=== PATIENT | female | born 1990 | race Caucasian/White ===

== ENCOUNTER 2019-12-25 17:17 | Emergency (ER) | payer BC, OTHER ==
[2019-12-25 17:23] VITALS: RESP 18
[2019-12-25 18:02] LABS: Appearance,Urine Clear (Clear); Basophils % (A) 1 %; Bilirubin,Urine Negative (Negative); Blood,Urine Negative (Negative); Color,Urine Colorless; Eosinophils # (A) 0.2 k/uL (0-0.7); Eosinophils % (A) 3 %; Glucose,Urine (UA) Negative (Negative); HCT 42.9 % (34.0-46.0); HGB 14.9 gm/dL (11.4-16.0); Ketones,Urine Negative (Negative); Leukocyte Esterase,Urine Negative (Negative); Lymphocytes % (A) 24 %; MCH 31.8 pg (25.0-35.0); MCHC 34.7 g/dL (31.0-37.0); MCV 91.5 fL (80.0-100.0); Mean Platelet Volume 8.1; Monocytes # (A) 0.5 k/uL (0-1.0); Monocytes % (A) 6 %; Neutrophils # (A) 5.4 k/uL (1.3-7.7); Neutrophils % (A) 66 %; Nitrite,Urine Negative (Negative); Platelet Count 205 k/uL (150-450); Protein,Urine Negative (Negative); RBC 4.69 m/uL (3.80-5.40); RDW 11.6 % (11.5-15.5); Specific Gravity,Urine 1.003 (1.001-1.035); Urobilinogen,Urine <2.0 mg/dL (<2.0); WBC 8.2 k/uL (3.8-10.6)
[2019-12-25 18:10] LABS: ALT 79 U/L (4-34); AST 36 U/L (14-36); African American GFR (CKD) >90 (>60 ml/min/1.73 sqM); Albumin 4.6 g/dL (3.5-5.0); Alkaline Phosphatase 56 U/L (38-126); Anion Gap 8 mmol/L; Blood Urea Nitrogen 6 mg/dL (7-17); Calcium 9.8 mg/dL (8.4-10.2); Carbon Dioxide 26 mmol/L (22-30); Chloride 103 mmol/L (98-107); Glucose 92 mg/dL (74-99); Non-African American GFR(CKD) >90 (>60 ml/min/1.73 sqM); Sodium 137 mmol/L (137-145); Total Bilirubin 0.2 mg/dL (0.2-1.3); Total Protein 7.3 g/dL (6.3-8.2)
--- NOTE | 2019-12-25 18:37 | ED ---
Female Urogenital HPI - General Chief complaint: Urogenital Stated complaint: 10.5 wks preg/back pain Time Seen by Provider: 12/25/19 17:25 Source: patient Mode of arrival: ambulatory Limitations: no limitations - History of Present Illness Initial comments: 21-year-old female presenting today for chief complaint of left lower back and pelvic pain. Patient states that she has had left lower back and pelvic pain for the past 5 days. Patient states she is concerned as she believes she is approximately 10 weeks last menstrual period 10/13/19992019. Patient states she called her [employer] Dr. Hernandez who is familiar with her as a patient who recommended her come to the emergency department. Patient denies a vaginal discharge consistent for a sexual transmitted diseases fevers or vaginal bleeding. Patient has no additional complaints. - Related Data Home Medications Medication Instructions Recorded Confirmed Acetaminophen Tab [Tylenol Tab] 500 mg PO ONCE PRN 12/25/19 12/25/19 Allergies Allergy/AdvReac Type Severity Reaction Status Date / Time adhesive Allergy Unknown Rash/Hives Verified 12/25/19 19:00 latex Allergy Unknown Rash/Hives Verified 12/25/19 19:00 prednisone Allergy Unknown Hives Verified 12/25/19 19:00 Review of Systems ROS Statement: Those systems with pertinent positive or pertinent negative responses have been documented in the HPI. ROS Other: All systems not noted in ROS Statement are negative. Past Medical History Past Medical History: No Reported History History of Any Multi-Drug Resistant Organisms: None Reported Past Surgical History: Section Additional Past Surgical History / Comment(s): left ovary removed - r/t torsion Past Psychological History: Depression Smoking Status: Current every day smoker Past Alcohol Use History: None Reported Past Drug Use History: None Reported General Exam - General Exam Comments Initial Comments: General: The patient is awake and alert, in no distress, and does not appear acutely ill. Eye: Pupils are equal, round and reactive to light, extra-ocular movements are intact. No nystagmus. There is normal conjunctiva bilaterally. No signs of icterus. Ears, nose, mouth and throat: There are moist mucous membranes and no oral lesions. Gastrointestinal: Soft, non-distended, tender left lower aspect of the abdomen without masses or organomegaly noted. There is no rebound or guarding present. Musculoskeletal: Normal ROM, no tenderness. Strength 5/5. Sensation intact. Radial pulses equal bilaterally 2+. Neurological: A&O x 3. CN II-XII intact grossly, There are no obvious motor or sensory deficits. Coordination appears grossly intact. Speech is normal. Skin: Skin is warm and dry and no rashes or lesions are noted. Psychiatric: Cooperative, appropriate mood & affect, normal judgment. Patient refused pelvic examination--denies discharge/bleeding Limitations: no limitations Course Vital Signs 12/25/19 17:20 Temperature 98.6 F Pulse Rate 90 Respiratory 18 Rate Blood Pressure 125/80 O2 Sat by Pulse 94 L Oximetry Medical Decision Making - Medical Decision Making 29yo presenting for left lower pelvic pain. US IUP with surgically absent left ovary. Some mild free fluid. Patient US shows no HR, ddx included demise vs early . HCG levels elevated, consistent with 6 weeks gestatation. Will trend. Patient has established OBGYN care who were aware of her visit today (per patient). She has f/u scheduled next week. Recommended immediate return for increasing pain/fevers/discharge. Patient has no RLQ pain. Patient will be discharged with OBGYN f/u. Patient agreeable as is Dr. Vu with care plan and admission. - Lab Data Result diagrams: 12/25/19 17:54 12/25/19 17:54 Lab Results 12/25/19 12/25/19 12/25/19 Range/Units 17:54 17:54 17:54 WBC 8.2 (3.8-10.6) k/uL RBC 4.69 (3.80-5.40) m/uL Hgb 14.9 (11.4-16.0) gm/dL Hct 42.9 (34.0-46.0) % MCV 91.5 (80.0-100.0) fL MCH 31.8 (25.0-35.0) pg MCHC 34.7 (31.0-37.0) g/dL RDW 11.6 (11.5-15.5) % Plt Count 205 (150-450) k/uL Neutrophils % 66 % Lymphocytes % 24 % Monocytes % 6 % Eosinophils % 3 % Basophils % 1 % Neutrophils # 5.4 (1.3-7.7) k/uL Lymphocytes # 2.0 (1.0-4.8) k/uL Monocytes # 0.5 (0-1.0) k/uL Eosinophils # 0.2 (0-0.7) k/uL Basophils # 0.0 (0-0.2) k/uL Sodium 137 (137-145) mmol/L Potassium 4.0 (3.5-5.1) mmol/L Chloride 103 (98-107) mmol/L Carbon Dioxide 26 (22-30) mmol/L Anion Gap 8 mmol/L BUN 6 L (7-17) mg/dL Creatinine 0.59 (0.52-1.04) mg/dL Est GFR (CKD-EPI)AfAm >90 (>60 ml/min/1.73 sqM) Est GFR (CKD-EPI)NonAf >90 (>60 ml/min/1.73 sqM) Glucose 92 (74-99) mg/dL Calcium 9.8 (8.4-10.2) mg/dL Total Bilirubin 0.2 (0.2-1.3) mg/dL AST 36 (14-36) U/L ALT 79 H (4-34) U/L Alkaline Phosphatase 56 (38-126) U/L Total Protein 7.3 (6.3-8.2) g/dL Albumin 4.6 (3.5-5.0) g/dL HCG, Quant mIU/mL Urine Color Urine Appearance (Clear) Urine pH (5.0-8.0) Ur Specific [place] (1.001-1.035) Urine Protein (Negative) Urine Glucose (UA) (Negative) Urine Ketones (Negative) Urine Blood (Negative) Urine Nitrite (Negative) Urine Bilirubin (Negative) Urine Urobilinogen (<2.0) mg/dL Ur Leukocyte Esterase (Negative) Blood Type O Positive Blood Type Recheck O Pos Bld Type Recheck Status No 12/25/19 12/25/19 Range/Units 17:54 17:54 WBC (3.8-10.6) k/uL RBC (3.80-5.40) m/uL Hgb (11.4-16.0) gm/dL Hct (34.0-46.0) % MCV (80.0-100.0) fL MCH (25.0-35.0) pg MCHC (31.0-37.0) g/dL RDW (11.5-15.5) % Plt Count (150-450) k/uL Neutrophils % % Lymphocytes % % Monocytes % % Eosinophils % % Basophils % % Neutrophils # (1.3-7.7) k/uL Lymphocytes # (1.0-4.8) k/uL Monocytes # (0-1.0) k/uL Eosinophils # (0-0.7) k/uL Basophils # (0-0.2) k/uL Sodium (137-145) mmol/L Potassium (3.5-5.1) mmol/L Chloride (98-107) mmol/L Carbon Dioxide (22-30) mmol/L Anion Gap mmol/L BUN (7-17) mg/dL Creatinine (0.52-1.04) mg/dL Est GFR (CKD-EPI)AfAm (>60 ml/min/1.73 sqM) Est GFR (CKD-EPI)NonAf (>60 ml/min/1.73 sqM) Glucose (74-99) mg/dL Calcium (8.4-10.2) mg/dL Total Bilirubin (0.2-1.3) mg/dL AST (14-36) U/L ALT (4-34) U/L Alkaline Phosphatase (38-126) U/L Total Protein (6.3-8.2) g/dL Albumin (3.5-5.0) g/dL HCG, Quant 03496.6 mIU/mL Urine Color Colorless Urine Appearance Clear (Clear) Urine pH 7.0 (5.0-8.0) Ur Specific [place] 1.003 (1.001-1.035) Urine Protein Negative (Negative) Urine Glucose (UA) Negative (Negative) Urine Ketones Negative (Negative) Urine Blood Negative (Negative) Urine Nitrite Negative (Negative) Urine Bilirubin Negative (Negative) Urine Urobilinogen <2.0 (<2.0) mg/dL Ur Leukocyte Esterase Negative (Negative) Blood Type Blood Type Recheck Bld Type Recheck Status Disposition Clinical Impression: , Pelvic pain, Low back pain Disposition: HOME SELF-CARE Condition: Good Instructions (If sedation given, give patient instructions): Threatened Miscarriage (ED), Pelvic Pain in Women (ED) Additional Instructions: Please use medication as discussed. Please follow-up with OBGYN next week as scheduled, return for worsening pain, fevers, vaginal bleeding. REPEAT HCG in 48 hours. Please return to emergency room if the symptoms increase or worsen or for any other concerns. Is patient prescribed a controlled substance at d/c from ED?: No Referrals: None,Stated [Primary Care Provider] - 1-2 days Yudelka Hernandze DO [Doctor of Osteopathic Medicine] - 1-2 days Time of Disposition: 19:30
--- NOTE | 2019-12-25 19:23 | US ---
EXAMINATION TYPE: Transabdominal DATE OF EXAM: 12/25/2019 6:30 PM COMPARISON: NONE CLINICAL HISTORY: pain. lower back pain, left pelvic pain, left oopherectomy EXAM PERFORMED: Transvaginal (TV) and Transabdominal (TA) EXAM MEASUREMENTS: GESTATIONAL AGE / DATING Physician Established: Not yet established Dates by LMP: (10 weeks/3 days) EDC: 07/19/20 Dates by First Scan: No previous this is first scan Dates by Current Scan for: (6 weeks/4 days) EDC: 08/15/20 MATERNAL ANATOMY Uterus: 7.6 x 4.9 x 6.0cm Right Ovary: 4.5 x 4.1 x 3.9cm Left Ovary: surgically absent Post CDS / Adnexa: small amount of free fluid right adnexa adjacent to ovary Presence of free fluid: yes Presence of corpus luteal cyst: cystic area right ovary = 3.5 x 2.9 x 3.6cm GESTATION / SURVEY CRL: 0.7cm (6 weeks/4 days) Yolk Sac (normal less than 6mm): 0.3cm unable to detect heart tones at this time Date of LMP: 10/13/19 Beta HcG (if available): Not available at this time Unable to detect heart tones at this time. Cystic area right ovary. Trace amount of free fluid right adnexa adjacent to ovary. IMPRESSION: There is a single intrauterine gestational sac with yolk sac present. pole is present. Cardiac activity is not identified at this time. 6 week 4 day gestational age based on the crown-rump length is present. Early or intrauterine demise should be considered. Short-term follow-up a nd correlation with beta-hCG is recommended.
[2019-12-25 20:33] VITALS: BP 122/70; PULSE 72; TEMP 97.7
== END 2019-12-25 20:32 | disposition home or self-care (01) ==
LOC: EC 17:17
DX: O99.89 Other specified diseases and conditions complicating pregnancy, childbirth and the puerperium (principal); M54.5 Low back pain; R10.2 Pelvic and perineal pain; O99.331 Smoking (tobacco) complicating pregnancy, first trimester; F17.200 Nicotine dependence, unspecified, uncomplicated; Z91.040 Latex allergy status; Z88.8 Allergy status to other drugs, medicaments and biological substances; Z91.048 Other nonmedicinal substance allergy status; Z90.721 Acquired absence of ovaries, unilateral; Z3A.01 Less than 8 weeks gestation of pregnancy
CPT/HCPCS: 36415; 76801; 76817; 80053; 81003; 84702; 85025; 86900; 86901; 99284

== ENCOUNTER → 2020-01-03 | Outpatient (CLI) | payer OTHER | END | disposition home or self-care (01) | LOC: LABWHC1 09:08 | PROVIDERS: ATTEND Obstetrics & Gynecology | DX: Z11.59 Encounter for screening for other viral diseases (principal) ==

== ENCOUNTER → 2020-01-03 | Outpatient (CLI) | payer OTHER | END | disposition home or self-care (01) | LOC: LABPAT 11:47 | PROVIDERS: ATTEND Obstetrics & Gynecology | DX: Z01.818 Encounter for other preprocedural examination (principal) | CPT/HCPCS: 86850; 86900; 86901 ==

== ENCOUNTER 2020-01-05 10:48 | Day surgery (SDC) | payer OTHER ==
[2020-01-04 08:54] VITALS: BMI 25.4
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
[~2020-01-05 10:48] MED LIST: LACTATED RINGERS 1,000 ML IV SCH; MIDAZOLAM 2 MG/2 ML VIAL IV PRN; ONDANSETRON 4 MG/2 ML VIAL IVP ONE; Pre Op ABX Message 1 EACH MISC MISCELLANE ONE; SCOPOLAMINE 1.5MG/72HR PATCH TRANSDERM ONE
[2020-01-05 11:36] VITALS: TEMP 97.3
[2020-01-05 11:48] LABS: Glucose,Whole Blood 90 mg/dL (75-99)
[2020-01-05] MEDS ORDERED: LIDOCAINE 1% INJ 10MG/ML (20 ML MDV) ONE (12:16)
[2020-01-05] MEDS ORDERED: MIDAZOLAM 2 MG/2 ML VIAL ONE (12:16)
[2020-01-05] MEDS ORDERED: PROPOFOL 10 MG/ML 20 ML VIAL IV ONE (12:16)
[2020-01-05] MEDS ORDERED: fentaNYL (PF) 50 MCG/ML 2 ML AMP ONE (12:16)
[2020-01-05] MEDS ORDERED: KETOROLAC 30 MG/ML 1 ML VIAL ONE (12:16)
[2020-01-05] MEDS ORDERED: SODIUM CHLORIDE 0.9% 1,000 ML IV ONE (12:24)
[2020-01-05] MEDS: HYDROmorphone 0.5 MG/0.5 ML SYRINGE IVP PRN ×3 (12:59→13:23)
--- NOTE | 2020-01-05 13:00 | P.OP ---
Date of Procedure: 01/05/20 Preoperative Diagnosis: 1. Missed Postoperative Diagnosis: 1. Missed Procedure(s) Performed: Suction D&C Anesthesia: MAC Surgeon: Yudelka Hernandez Estimated Blood Loss (ml): 100 IV fluids (ml): 400 Urine output (ml): 200 Pathology: other (Proximal of conception) Condition: stable Disposition: PACU Operative Findings: Moderate amount of excessive conception Description of Procedure: Patient is taken the operating room and general anesthesia was obtained without difficulty. She is prepped and draped in normal surface in dorsal lithotomy position, legs placed in candycane stirrups. Bladder was drained of all urine. Weighted speculum placed in vagina the anterior lip the cervix was grasped with single-tooth tenaculum. The cervix was dilated to a #9 Hegar dilator. #9 curved suction curet was introduced into the uterus and passed several times to clear the tissue and blood. Sharp curet was used to ensure all tissue had been removed. Suction curet was passed a few more times. Hemostasis was achieved. Patient tolerated the procedure well, sponge and instrument counts correct 2. She was taken to recovery in stable condition.
[2020-01-05] MEDS ORDERED: diphenhydrAMINE 50 MG/ML 1 ML VIAL IVP ONE (13:14)
[2020-01-05] MEDS ORDERED: LACTATED RINGERS 1,000 ML IV ONE (13:53)
[2020-01-05 14:22] VITALS: BP 101/67; PULSE 55; RESP 18
== END 2020-01-05 14:51 | disposition home or self-care (01) ==
LOC: OR 10:48
PROVIDERS: ATTEND Obstetrics & Gynecology
DX: O02.1 Missed abortion (principal); F17.210 Nicotine dependence, cigarettes, uncomplicated; Z88.8 Allergy status to other drugs, medicaments and biological substances; Z91.040 Latex allergy status; Z91.048 Other nonmedicinal substance allergy status; Z80.49 Family history of malignant neoplasm of other genital organs
CPT/HCPCS: 86900; 86901; 88305; 86850; 59820; J2250; J1200; J2405; J2001; J3010; J1885; J2704; J1170

== ENCOUNTER 2023-02-03 23:48 | Inpatient (IN) | payer OTHER ==
[2023-02-04] MEDS ORDERED: CARBOPROST TROMETHAMINE 250 MCG/ML 1 ML AMP IM PRN (01:02)
[2023-02-04] MEDS ORDERED: miSOPROStoL 200 MCG TAB PO PRN (01:02)
[2023-02-04] MEDS ORDERED: OXYTOCIN 10 UNIT/ML 1 ML VIAL IM PRN (01:02)
[2023-02-04] MEDS ORDERED: CITRIC ACID-SODIUM CITRATE 15 ML CUP PO ONE (01:02)
[2023-02-04] MEDS ORDERED: TRANEXAMIC 1,000 MG/100ML-NACL 1,000 MG in EMPTY BAG 1 BAG IV PRN (01:02)
[2023-02-04] MEDS ORDERED: METHYLERGONOVINE 0.2 MG/ML 1 ML AMP IM PRN (01:02)
[2023-02-04] MEDS ORDERED: OXYTOCIN 30 UNITS/500 ML NS 30 UNIT in SALINE 1 500ML.BAG IV SCH ×2 (01:15→08:45)
[2023-02-04] MEDS: ONDANSETRON 4 MG/2 ML VIAL IVP PRN ×3 (01:17→14:06)
[2023-02-04] MEDS: LACTATED RINGERS 1,000 ML IV SCH ×4 (01:23→19:31)
[2023-02-04 01:42] LABS: Basophils % (A) 0 %; Eosinophils # (A) 0.1 k/uL (0-0.7); Eosinophils % (A) 1 %; HGB 13.9 gm/dL (11.4-16.0); Lymphocytes # (A) 1.1 k/uL (1.0-4.8); Lymphocytes % (A) 6 %; MCH 29.3 pg (25.0-35.0); MCHC 33.2 g/dL (31.0-37.0); MCV 88.3 fL (80.0-100.0); Mean Platelet Volume 10.1; Monocytes # (A) 0.8 k/uL (0-1.0); Monocytes % (A) 5 %; Neutrophils # (A) 14.6 k/uL (1.3-7.7); Neutrophils % (A) 87 %; Platelet Count 176 k/uL (150-450); RBC 4.75 m/uL (3.80-5.40); WBC 16.8 k/uL (3.8-10.6)
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
[2023-02-04] MEDS ORDERED: KETOROLAC 15 MG/ML 1 ML VIAL ONE (07:55)
[2023-02-04] MEDS ORDERED: ePHEDrine 50 MG/ML 1 ML VIAL ONE (07:55)
[2023-02-04] MEDS ORDERED: fentaNYL (PF) 50 MCG/ML 2 ML AMP ONE (07:55)
[2023-02-04] MEDS ORDERED: MORPHINE SULFATE (PF) 0.3 MG/0.3 ML SYR ONE (07:55)
[2023-02-04] MEDS ORDERED: NALBUPHINE 10 MG/ML (10 ML MDV) ONE (07:55)
[2023-02-04] MEDS ORDERED: ONDANSETRON 4 MG/2 ML VIAL ONE (07:55)
[2023-02-04] MEDS ORDERED: ZOLPIDEM 5 MG TAB PO PRN (08:40)
[2023-02-04] MEDS ORDERED: SIMETHICONE 80 MG CHEWABLE PO PRN (08:40)
[2023-02-04] MEDS ORDERED: diphenhydrAMINE 50 MG/ML 1 ML VIAL IVP PRN ×2 (08:40)
[2023-02-04] MEDS ORDERED: diphenhydrAMINE 50 MG CAP PO PRN (08:40)
[2023-02-04] MEDS ORDERED: NALOXONE 0.4 MG/ML 1 ML VIAL IV PRN (08:40)
[2023-02-04] MEDS ORDERED: diphenhydrAMINE 25 MG CAP PO PRN (08:40)
[2023-02-04] MEDS ORDERED: LANOLIN CREAM 5 GM TUBE TOPICAL PRN (08:40)
--- NOTE | 2023-02-04 08:40 | P.OP ---
Date of Procedure: 02/04/23 Preoperative Diagnosis: 1. at 39 weeks 2. family planning 3. previous 4. previous left salpingectomy Postoperative Diagnosis: same Procedure(s) Performed: Repeat low transverse and removal of right tubal segment Anesthesia: spinal Surgeon: Yudelka Hernandez Building Operator #1: Laura Davila Estimated Blood Loss (ml): 435 IV fluids (ml): 1,000 Urine output (ml): 100 Pathology: other (Portion of right fallopian tube) Condition: stable Disposition: floor Operative Findings: normall uterus, missing left adnexa consistent with previous surgeries, normal right tube and ovary. Viable male, Apgars 9, 9, weight 8 lbs. 6 oz. Description of Procedure: Patient was taken to the operating room where spinal anesthesia was found be adequate. She was prepped and draped in normal sterile fashion in dorsal supine position with a leftward tilt. Pfannenstiel skin incision was made the scalpel and carried through to the underlying layer of fascia with the scalpel. Fascia was incised in midline and carried bilaterally with the Rees scissors. The superior aspect of the fascial incision was grasped with Bg clamps elevated and the underlying rectus muscles dissected off with the Rees's. Attention was then turned to inferior aspect of same incision which in a similar fashion was grasped tented up and the underlying rectus muscles dissected off with the Rees's. The rectus muscles were the midline and the peritoneum was identified tented up and entered sharply with the scalpel. The incision was extended superiorly and inferiorly with good visualization of the bladder. The bladder blade was inserted and the vesicouterine peritoneum was incised the Metzenbaums then carried bilaterally and bladder flap created digitally. A low transverse incision was then made on the uterus with the scalpel. This was carried bilaterally and digital manner. Infant's head delivered atraumatically, nose and mouth bulb suctioned, cord clamped and cut, handed off to waiting nurses. Apgars 9,9, weight 8 lbs. 6 oz. Placenta delivered manually, intact with three-vessel cord. The uterus is exteriorized and cleared of all clots and debris. The uterine incision was closed with 0 Vicryl in a running locked fashion. Second layer of the same sutures used in imbricating fashion to obtain excellent hemostasis. Bladder flap was then reapproximated using 2-0 Vicryl in a running fashion. The left adnexa is missing consistent with previous surgery. The right fallopian tube and ovary appeared normal. The right fallopian tube was grasped with a hemostat and a window was made in the mesosalpinx with the Bovie. Portion of the right fallopian tube was doubly ligated and a segment was removed, pedicles were cauterized with the Bovie. The uterus was placed back into the abdomen. The peritoneum was reapproximated using 2-0 Vicryl in a running fashion. The fascia was reapproximated using 0 Vicryl in a running fashion. The subcutaneous tissues closed with 3-0 Vicryl running fashion. The skin was closed omi. Patient tolerated the procedure well, sponge and instrument counts were correct times 2 and she was taken to the recovery room in stable condition.
[2023-02-04] MEDS: METOCLOPRAMIDE 5 MG/ML 2 ML VIAL IVP PRN ×2 (10:38→16:41)
[2023-02-04] MEDS ORDERED: ACETAMINOPHEN IV (For NPO) 1,000 MG in EMPTY BAG 1 BAG IVPB ONE (11:00)
[2023-02-04] MEDS: KETOROLAC 15 MG/ML 1 ML VIAL IVP SCH ×2 (15:20→20:27)
[2023-02-04] MEDS: IBUPROFEN 600 MG TAB PO SCH ×2 (15:50→20:28)
[2023-02-04] MEDS: FAMOTIDINE 20 MG/2 ML VIAL IV SCH (17:08)
[2023-02-04] MEDS: ACETAMINOPHEN IV (For NPO) 1,000 MG in EMPTY BAG 1 BAG IVPB SCH (18:10)
[2023-02-04] MEDS: ACETAMINOPHEN TAB 500 MG TAB PO SCH (19:31)
[2023-02-04] MEDS: SENNOSIDES-DOCUSATE SODIUM 1 EACH TAB PO SCH (20:27)
[2023-02-05] MEDS: ACETAMINOPHEN IV (For NPO) 1,000 MG in EMPTY BAG 1 BAG IVPB SCH ×3 (01:34→19:31)
[2023-02-05] MEDS: ACETAMINOPHEN TAB 500 MG TAB PO SCH ×2 (01:34→19:29)
[2023-02-05] MEDS: LACTATED RINGERS 1,000 ML IV SCH ×3 (01:34→19:31)
[2023-02-05] MEDS: KETOROLAC 15 MG/ML 1 ML VIAL IVP SCH ×2 (03:26→19:29)
[2023-02-05] MEDS: IBUPROFEN 600 MG TAB PO SCH ×4 (04:12→20:13)
[2023-02-05 07:05] LABS: Basophils % (A) 0 %; Eosinophils # (A) 0.1 k/uL (0-0.7); Eosinophils % (A) 1 %; HCT 33.1 % (34.0-46.0); Lymphocytes # (A) 1.6 k/uL (1.0-4.8); Lymphocytes % (A) 19 %; MCH 30.2 pg (25.0-35.0); MCHC 33.3 g/dL (31.0-37.0); MCV 90.7 fL (80.0-100.0); Mean Platelet Volume 9.9; Monocytes # (A) 0.7 k/uL (0-1.0); Monocytes % (A) 8 %; Neutrophils # (A) 5.7 k/uL (1.3-7.7); Neutrophils % (A) 70 %; Platelet Count 133 k/uL (150-450); RBC 3.65 m/uL (3.80-5.40); RDW 14.1 % (11.5-15.5); WBC 8.1 k/uL (3.8-10.6)
--- NOTE | 2023-02-05 07:11 | P.PN ---
Progress Note - Text 02/05/23 612am 32-year-old female status post by Dr. Hernandez. Patient seen and evaluated for postop pain control, she has a VAS of 8 and receiving oral pain meds for pain control. She has no complains of nausea or pruritus
[2023-02-05] MEDS: SENNOSIDES-DOCUSATE SODIUM 1 EACH TAB PO SCH ×2 (11:43→20:08)
[2023-02-05] MEDS: FAMOTIDINE 20 MG/2 ML VIAL IV SCH (19:30)
[2023-02-06] MEDS: ACETAMINOPHEN TAB 500 MG TAB PO SCH ×3 (01:09→13:52)
[2023-02-06] MEDS: IBUPROFEN 600 MG TAB PO SCH ×2 (04:14→10:20)
[2023-02-06] MEDS: LACTATED RINGERS 1,000 ML IV SCH (04:32)
[2023-02-06] MEDS: KETOROLAC 15 MG/ML 1 ML VIAL IVP SCH (04:34)
[2023-02-06 09:11] VITALS: BP 98/64; PULSE 85; RESP 14; TEMP 98
[2023-02-06] MEDS: SENNOSIDES-DOCUSATE SODIUM 1 EACH TAB PO SCH (09:11)
--- NOTE | 2023-02-06 11:28 | P.PNOBGPC ---
Subjective - Subjective Principal diagnosis: Status post repeat low transverse with TL postop day 1 Interval history: Patient seen and examined. Denies nausea, vomiting, chest pain, shortness of breath or calf pain. Patient reports: Reports appetite normal, Reports pain well controlled, Reports ambulating normally Crane: doing well Objective - Vital Signs Latest vital signs: Vital Signs Temp Pulse Resp BP Pulse Ox 02/06/23 08:00 98 F 85 14 98/64 02/06/23 00:00 98.1 F 91 16 102/66 99 02/05/23 16:00 98.1 F 68 16 99/66 Intake and Output 02/05/23 02/06/23 02/06/23 22:59 06:59 14:59 Other: # Voids 2 2 - Exam Lungs: bilateral: normal Chest: Normal S1, Normal S2 Extremities: Present: normal Abdomen: Present: normal appearance, soft. Absent: distention, tenderness Incision: Present: normal, dry, intact Uterus: Present: normal, firm Assessment and Plan (1) Previous section Current Visit: Yes Status: Resolved Code(s): Z98.891 - HISTORY OF UTERINE SCAR FROM PREVIOUS SURGERY SNOMED Code(s): 593873341 (2) 39 weeks gestation of Current Visit: Yes Status: Resolved Code(s): Z3A.39 - 39 WEEKS GESTATION OF SNOMED Code(s): 91084844 (3) Status post repeat low transverse section Current Visit: Yes Status: Acute Code(s): Z98.891 - HISTORY OF UTERINE SCAR FROM PREVIOUS SURGERY SNOMED Code(s): 818354021 (4) Status post tubal ligation at time of delivery, current hosp Current Visit: Yes Status: Acute Code(s): O80 - ENCOUNTER FOR FULL-TERM UNCOMPLICATED DELIVERY; Z30.2 - ENCOUNTER FOR STERILIZATION SNOMED Code(s): 72951160908487 Plan: 1. Increase ambulation 2. Regular diet 3. Oral pain medication
--- NOTE | 2023-02-06 11:30 | P.DS ---
Providers Date of admission: 02/04/23 00:09 Expected date of discharge: 02/06/23 Attending physician: Yudelka Hernandez Primary care physician: Stated None - Discharge Diagnosis(es) (1) Previous section Current Visit: Yes Status: Resolved (2) 39 weeks gestation of Current Visit: Yes Status: Resolved (3) Status post repeat low transverse section Current Visit: Yes Status: Acute (4) Status post tubal ligation at time of delivery, current hosp Current Visit: Yes Status: Acute Hospital Course: Patient presented for repeat low transverse with tubal ligation. She underwent this procedure without complication. Postoperative course was uneventful. She denies nausea, vomiting, chest pain, shortness of breath or any calf pain. Patient will be discharged home postoperative day #2 in stable condition to follow-up with me in one week. Plan - Discharge Summary New Discharge Prescriptions: New Ibuprofen [Motrin] 600 mg PO Q6H #30 tab oxyCODONE HCL [OxyIR] 5 mg PO Q4HR PRN #18 tab PRN Reason: Pain Scale 4 - 6 Discharge Medication List Ibuprofen [Motrin] 600 mg PO Q6H #30 tab 02/06/23 [Rx] oxyCODONE HCL [OxyIR] 5 mg PO Q4HR PRN #18 tab 02/06/23 [Rx] Follow up Appointment(s)/Referral(s): Yudelka Hernandez DO [Doctor of Osteopathic Medicine] - 03/16/23 10:45 am (Post- op appointment scheduled for February 15 at 9AM) Discharge Disposition: HOME SELF-CARE
== END 2023-02-06 14:22 | disposition home or self-care (01) | DRG 539 ==
LOC: FBPOP 23:48 → 4FBP 02-04 00:09
PROVIDERS: ADMIT Obstetrics & Gynecology; ATTEND Obstetrics & Gynecology
PROC: 10D00Z1 Extraction of Products of Conception, Low, Open Approach (ICD-10-PCS; principal; 2023-02-04 08:00)
PROC: 0UT50ZZ Resection of Right Fallopian Tube, Open Approach (ICD-10-PCS; principal; 2023-02-04 08:00)
DX: O34.211 Maternal care for low transverse scar from previous cesarean delivery (principal); O99.344 Other mental disorders complicating childbirth; F32.A Depression, unspecified; F41.9 Anxiety disorder, unspecified; Z30.2 Encounter for sterilization; Z37.0 Single live birth; Z3A.39 39 weeks gestation of pregnancy; Z86.718 Personal history of other venous thrombosis and embolism; Z90.721 Acquired absence of ovaries, unilateral; Z28.310 Unvaccinated for COVID-19; Z28.20 Immunization not carried out because of patient decision for unspecified reason; Z88.8 Allergy status to other drugs, medicaments and biological substances; Z91.014 Allergy to mammalian meats
CPT/HCPCS: 59025; 85025; 86850; 86900; 86901; 88302; 99213